=== PATIENT | male | born 1995 ===

== ENCOUNTER 2024-08-21 00:20 | Inpatient (IN) ==
[2024-08-21 02:12] LABS: Hematocrit 27.6 % (38-53); Hemoglobin 9.2 g/dL (13.2-16.3); Mean Corpuscular Hemoglobin 29.4 pg (27-33); Mean Corpuscular Hgb Conc 33.5 g/dL (31-36); Mean Corpuscular Volume 87.5 fL (80-97); Mean Platelet Volume 5.8 fL (7.5-11.2); Platelet Count 587 10^3/uL (150-450); Red Blood Count 3.15 10^6/uL (4.06-5.63); Red Cell Distribution Width 13.1 % (12-17); White Blood Count 21.9 10^3/uL (3.6-10.2)
[2024-08-21 02:55] LABS: ALT 10 U/L (7-52); AST 9 U/L (13-39); Albumin 2.5 g/dL (3.2-5.2); Albumin/Globulin Ratio 0.8 (1-3); Alkaline Phosphatase 64 U/L (35-149); Anion Gap 12 mmol/L (2-16); Blood Urea Nitrogen 8 mg/dL (6-24); C Reactive Protein 223.67 mg/L (<8.01); CO2 Carbon Dioxide 31 mmol/L (22-32); Calcium 7.7 mg/dL (8.6-10.3); Chloride 86 mmol/L (101-111); Creatinine, Serum 0.47 mg/dL (0.67-1.17); Globulin 3.2 g/dL (2-4); Glucose 73 mg/dL (70-100); Potassium 3.3 mmol/L (3.5-5.0); Sodium 129 mmol/L (135-145); Total Bilirubin 0.5 mg/dL (0.2-1.0); Total Protein 5.7 g/dL (6.4-8.9); eGFR CKD-EPI 143.4 (>60)
[2024-08-21 03:28] LABS: ABS Eosinophils 0.1 10^3/uL (0.0-0.5); ABS Lymphocytes 0.7 10^3/uL (1.0-4.8); ABS Monocytes 0.9 10^3/uL (0.0-1.1); ABS Neutrophils 20.1 10^3/uL (1.5-7.6); Eosinophil % 0.5 %; Lymphocyte % 3.4 %
[2024-08-21 03:29] LABS: Magnesium 1.8 mg/dL (1.9-2.7); Phosphorus 3.7 mg/dL (2.5-5.0)
[2024-08-21 03:41] LABS: Urine Appearance Clear; Urine Bilirubin Negative (Negative); Urine Blood Negative (Negative); Urine Glucose Negative (Negative); Urine Ketones 4+ (Negative); Urine Nitrite Negative (Negative); Urine Protein 1+ (>=30 mg/dL) (Negative); Urine Specific Gravity 1.035 (1.002-1.030); Urine Urobilinogen Negative (Negative)
[2024-08-21 03:46] LABS: Urine Bacteria Absent /HPF (Absent); Urine Red Blood Cell Trace(0-2/hpf) /HPF (0-Trace); Urine Sperm Present /HPF (Absent); Urine White Blood Cell 2+(11-20/hpf) /HPF (0-Trace)
[2024-08-21 03:55] LABS: Folate 7.23 ng/mL (5.90-24.80)
[2024-08-21 03:55] LABS: Urine Color Dark-Yellow
[2024-08-21 03:56] LABS: Vitamin B12 1425 pg/mL (180-914)
[2024-08-21] MEDS: Lactated Ringers 1000 ml BAG 1,000 ML IV SCH (04:30)
[2024-08-21] MEDS: KCL 20 MEQ/100 ML IVPREMIX 20 MEQ/100 ML BAG IV SCH (04:30)
[2024-08-21] MEDS ORDERED: fentaNYL 100 mcg/2 ml 50 MCG/ML VIAL IV SLOW PU PRN (05:27)
[2024-08-21] MEDS: Magnesium Sulfate 2 gm BAG 2 GM/50 ML BAG IVPB ONE (05:49)
[2024-08-21] MEDS: methylPREDNISolone SOD SUCC 40 mg/ml 1 ml VIAL IV SCH (05:49)
[2024-08-21 05:54] LABS: Osmolality Serum 264 mOsm/kg (275-295)
[2024-08-21] MEDS: Acetaminophen IV 1 GM/100ML 1,000 MG/100 ML BAG IV SCH (08:08)
[2024-08-21 09:16] LABS: Urine Osmo 636 mOsm/kg (150-1150)
[2024-08-21] MEDS: Lactated Ringers 1000 ml BAG 1,000 ML IV ONE (09:50)
[2024-08-21 11:01] LABS: % Iron Saturation 11 % (15-55); .Transferrin 128 mg/dL (203-362); Iron < 20 ug/dL (50-212); Total Iron Binding Capacity 179 mcg/dL (250-450); Unsaturated Iron Binding 159 ug/dL
[2024-08-21] MEDS ORDERED: Morphine 2 MG/ML SYRINGE IV PRN ×2 (11:24→11:27)
[2024-08-21 11:27] LABS: Erythrocyte Sed Rate 111 mm/Hr (0-14)
[2024-08-21 12:55] LABS: Calcium 7.5 mg/dL (8.6-10.3); Creatinine, Serum 0.36 mg/dL (0.67-1.17); Potassium 3.3 mmol/L (3.5-5.0); eGFR CKD-EPI 155.4 (>60)
[2024-08-21 13:00] LABS: Hematocrit 24.3 % (38-53); Hemoglobin 8.1 g/dL (13.2-16.3); Mean Corpuscular Hemoglobin 28.9 pg (27-33); Mean Corpuscular Hgb Conc 33.3 g/dL (31-36); Mean Corpuscular Volume 86.7 fL (80-97); Mean Platelet Volume 5.9 fL (7.5-11.2); Platelet Count 527 10^3/uL (150-450); Red Blood Count 2.81 10^6/uL (4.06-5.63); Red Cell Distribution Width 13.3 % (12-17); White Blood Count 18.8 10^3/uL (3.6-10.2)
[2024-08-21 15:02] LABS: ABS Lymphocytes 0.2 10^3/uL (1.0-4.8); ABS Monocytes 0.3 10^3/uL (0.0-1.1); ABS Neutrophils 18.2 10^3/uL (1.5-7.6); Eosinophil % 0.1 %; Lymphocyte % 1.3 %
[2024-08-21] MEDS: PEG 3000 GI LAVAGE 1 GALLON PO ONE (16:35)
[2024-08-21] MEDS: Heparin 5000 UNITS/ML 1 mL VIAL SUBCUT ONE (18:22)
[2024-08-21 21:33] LABS: Hematocrit 23.8 % (38-53); Hemoglobin 8.3 g/dL (13.2-16.3)
[2024-08-22 06:20] LABS: ABS Lymphocytes 0.4 10^3/uL (1.0-4.8); ABS Monocytes 0.4 10^3/uL (0.0-1.1); ABS Neutrophils 12.7 10^3/uL (1.5-7.6); Hematocrit 24.1 % (38-53); Hemoglobin 8.3 g/dL (13.2-16.3); Lymphocyte % 2.6 %; Mean Corpuscular Hemoglobin 29.7 pg (27-33); Mean Corpuscular Hgb Conc 34.5 g/dL (31-36); Mean Corpuscular Volume 86.1 fL (80-97); Mean Platelet Volume 6.8 fL (7.5-11.2); Platelet Count 500 10^3/uL (150-450); Red Blood Count 2.79 10^6/uL (4.06-5.63); Red Cell Distribution Width 13.6 % (12-17); White Blood Count 13.5 10^3/uL (3.6-10.2)
[2024-08-22 07:01] LABS: Calcium 7.6 mg/dL (8.6-10.3); Creatinine, Serum 0.36 mg/dL (0.67-1.17); Magnesium 1.9 mg/dL (1.9-2.7); Potassium 2.9 mmol/L (3.5-5.0); eGFR CKD-EPI 155.4 (>60)
[2024-08-22 08:27] LABS: C Reactive Protein 212.84 mg/L (<8.01)
[2024-08-22] MEDS: KCL 20 MEQ/100 ML IVPREMIX 20 MEQ/100 ML BAG IV SCH (09:02)
[2024-08-22] MEDS ORDERED: Magnesium Sulfate 2 gm BAG 2 GM/50 ML BAG IVPB ONE (10:22)
[2024-08-22] MEDS: Magnesium Sulfate 2 gm BAG 2 GM/50 ML BAG IVPB ONE (13:26)
[2024-08-22] MEDS ORDERED: fentaNYL 100 mcg/2 ml 50 MCG/ML VIAL ONE (16:05)
[2024-08-22] MEDS ORDERED: Midazolam 10 mg/10 ml VIAL 1 mg/ml 10 ml VIAL (10 mg) ONE (16:05)
[2024-08-22] MEDS: Acetaminophen IV 1 GM/100ML 1,000 MG/100 ML BAG IV SCH (17:29)
[2024-08-22 21:03] LABS: Adenovirus F40/41 Negative (Negative); Astrovirus Negative (Negative); Cryptosporidium species Negative (Negative); Cyclospora cayetanensis Negative (Negative); Entamoeba histolytica Negative (Negative); Enteroaggregative E.coli(EAEC) Negative (Negative); Enteropathogenic Ecoli(EPEC) Positive (Negative); Enterotoxigenic Ecoli(ETEC) Negative (Negative); Norovirus GI/GII Negative (Negative); Plesiomonas shigelloides Negative (Negative); Salmonella species Negative (Negative); Sapovirus Negative (Negative); Shiga toxin producing E. coli Negative (Negative); Shigella/Enteroinvasive E.coli Negative (Negative); Specimen Source STOOL; Vibrio cholerae Negative (Negative); Yersinia species Negative (Negative)
[2024-08-23 07:07] LABS: ABS Lymphocytes 0.4 10^3/uL (1.0-4.8); ABS Monocytes 0.4 10^3/uL (0.0-1.1); ABS Neutrophils 6.2 10^3/uL (1.5-7.6); Hematocrit 20.5 % (38-53); Hemoglobin 7.2 g/dL (13.2-16.3); Lymphocyte % 5.7 %; Mean Corpuscular Hemoglobin 30.5 pg (27-33); Mean Corpuscular Hgb Conc 35.4 g/dL (31-36); Mean Corpuscular Volume 86.1 fL (80-97); Mean Platelet Volume 6.3 fL (7.5-11.2); Platelet Count 490 10^3/uL (150-450); Red Blood Count 2.38 10^6/uL (4.06-5.63); Red Cell Distribution Width 13.5 % (12-17)
[2024-08-23 07:24] LABS: Albumin 2.2 g/dL (3.2-5.2); Albumin/Globulin Ratio 0.8 (1-3); C Reactive Protein 86.51 mg/L (<8.01); Calcium 7.4 mg/dL (8.6-10.3); Creatinine, Serum 0.31 mg/dL (0.67-1.17); Globulin 2.7 g/dL (2-4); Potassium 3.2 mmol/L (3.5-5.0); Total Bilirubin 0.2 mg/dL (0.2-1.0); Total Protein 4.9 g/dL (6.4-8.9); eGFR CKD-EPI 162.6 (>60)
[2024-08-23 08:24] LABS: Erythrocyte Sed Rate 98 mm/Hr (0-14)
[2024-08-23 10:59] LABS: Hepatitis B Surface Antigen Nonreactive (Nonreactive)
[2024-08-23 11:16] LABS: Hepatitis B Surface Ab Immune (Immune)
[2024-08-23 11:17] LABS: Hepatitis C Antibody Negative (Negative)
[2024-08-23] MEDS: Acetaminophen IV 1 GM/100ML 1,000 MG/100 ML BAG IV SCH (17:57)
[2024-08-23] MEDS: Potassium Chlor 20 meq TAB.ER PO ONE (17:58)
[2024-08-23] MEDS: MESALAMINE 1.2 GM PO SCH (18:19)
[2024-08-23] MEDS: Ferric Gluconate IV 250 MG in NS 0.9% 250 ml 200 ML IVPB SCH (18:23)
[2024-08-23 18:35] LABS: Calprotectin >3000 mcg/g
[2024-08-23] MEDS: Enoxaparin 40 MG/0.4 ML SYR SUBCUT SCH (20:40)
[2024-08-23] MEDS: Lactated Ringers 1000 ml BAG 1,000 ML IV SCH (20:46)
[2024-08-24 06:02] LABS: ABS Lymphocytes 0.5 10^3/uL (1.0-4.8); ABS Monocytes 0.8 10^3/uL (0.0-1.1); Hematocrit 21.3 % (38-53); Hemoglobin 7.6 g/dL (13.2-16.3); Lymphocyte % 5.4 %; Mean Corpuscular Hemoglobin 30.4 pg (27-33); Mean Corpuscular Hgb Conc 35.5 g/dL (31-36); Mean Corpuscular Volume 85.6 fL (80-97); Platelet Count 516 10^3/uL (150-450); Red Blood Count 2.49 10^6/uL (4.06-5.63); Red Cell Distribution Width 13.6 % (12-17); White Blood Count 9.3 10^3/uL (3.6-10.2)
[2024-08-24 06:26] LABS: C Reactive Protein 34.85 mg/L (<8.01); Calcium 7.6 mg/dL (8.6-10.3); Creatinine, Serum 0.3 mg/dL (0.67-1.17); Magnesium 1.9 mg/dL (1.9-2.7); Potassium 3.4 mmol/L (3.5-5.0); eGFR CKD-EPI 164.2 (>60)
[2024-08-24] MEDS: Enoxaparin 40 MG/0.4 ML SYR SUBCUT SCH (12:09)
[2024-08-24] MEDS: PPD test dose 5 TU/0.1 ML TEST (*USE PPD ORDER SET*) INTRADERM ONE (15:36)
[2024-08-24 15:38] LABS: Adenovirus F40/41 Negative (Negative); Astrovirus Negative (Negative); Cryptosporidium species Negative (Negative); Cyclospora cayetanensis Negative (Negative); Entamoeba histolytica Negative (Negative); Enteroaggregative E.coli(EAEC) Negative (Negative); Enteropathogenic Ecoli(EPEC) Positive (Negative); Enterotoxigenic Ecoli(ETEC) Negative (Negative); Norovirus GI/GII Negative (Negative); Plesiomonas shigelloides Negative (Negative); Salmonella species Negative (Negative); Sapovirus Negative (Negative); Shiga toxin producing E. coli Negative (Negative); Shigella/Enteroinvasive E.coli Negative (Negative); Specimen Source STOOL; Vibrio cholerae Negative (Negative); Yersinia species Negative (Negative)
[2024-08-24] MEDS: Lactated Ringers 1000 ml BAG 1,000 ML IV SCH (18:13)
[2024-08-24 21:50] LABS: CMV DNA DETECT/QT, P Undetected IU/mL (Undetected)
[2024-08-25 06:19] LABS: ABS Lymphocytes 0.6 10^3/uL (1.0-4.8); ABS Monocytes 0.5 10^3/uL (0.0-1.1); ABS Neutrophils 13.3 10^3/uL (1.5-7.6); Hematocrit 26.3 % (38-53); Hemoglobin 8.9 g/dL (13.2-16.3); Lymphocyte % 4.5 %; Mean Corpuscular Hemoglobin 29.3 pg (27-33); Mean Corpuscular Volume 86.3 fL (80-97); Mean Platelet Volume 6.2 fL (7.5-11.2); Platelet Count 584 10^3/uL (150-450); Red Blood Count 3.05 10^6/uL (4.06-5.63); Red Cell Distribution Width 13.8 % (12-17); White Blood Count 14.4 10^3/uL (3.6-10.2)
[2024-08-25 06:29] LABS: C Reactive Protein 21.37 mg/L (<8.01); Calcium 7.8 mg/dL (8.6-10.3); Creatinine, Serum 0.34 mg/dL (0.67-1.17); Magnesium 1.9 mg/dL (1.9-2.7); Potassium 3.4 mmol/L (3.5-5.0); eGFR CKD-EPI 158.1 (>60)
[2024-08-26 06:19] LABS: Hematocrit 27.3 % (38-53); Hemoglobin 9.4 g/dL (13.2-16.3); Mean Corpuscular Hemoglobin 29.9 pg (27-33); Mean Corpuscular Hgb Conc 34.5 g/dL (31-36); Mean Corpuscular Volume 86.8 fL (80-97); Mean Platelet Volume 6.1 fL (7.5-11.2); Platelet Count 637 10^3/uL (150-450); Red Blood Count 3.14 10^6/uL (4.06-5.63); Red Cell Distribution Width 13.6 % (12-17)
[2024-08-26 06:33] LABS: C Reactive Protein 15.42 mg/L (<8.01); Calcium 8.1 mg/dL (8.6-10.3); Creatinine, Serum 0.42 mg/dL (0.67-1.17); Potassium 4.1 mmol/L (3.5-5.0); eGFR CKD-EPI 148.3 (>60)
[2024-08-26] MEDS: PPD Reading NOTE 1 EA MISC ONE (15:26)
[2024-08-26] MEDS ORDERED: inFLIXimab-DYYB (Inflectra) 100 MG/10 ML VIAL IVPB ONE (16:00)
[2024-08-26] MEDS: Hydrocortisone INJ 100 MG/2ML 2 ML VIAL IV ONE (16:08)
[2024-08-26] MEDS: INFLIXIMAB DYYB IVPB ONE (16:37)
[2024-08-26] MEDS: NS 0.9% IVPB ONE (16:37)
[2024-08-27 06:29] LABS: Hematocrit 24.1 % (38-53); Hemoglobin 8.4 g/dL (13.2-16.3); Mean Corpuscular Hemoglobin 30.3 pg (27-33); Mean Corpuscular Hgb Conc 34.8 g/dL (31-36); Mean Corpuscular Volume 87.2 fL (80-97); Mean Platelet Volume 6.2 fL (7.5-11.2); Platelet Count 571 10^3/uL (150-450); Red Blood Count 2.76 10^6/uL (4.06-5.63); Red Cell Distribution Width 13.7 % (12-17); White Blood Count 9.5 10^3/uL (3.6-10.2)
[2024-08-27 06:48] LABS: Calcium 7.7 mg/dL (8.6-10.3); Creatinine, Serum 0.33 mg/dL (0.67-1.17); Potassium 3.6 mmol/L (3.5-5.0); eGFR CKD-EPI 159.5 (>60)
[2024-08-27 06:51] LABS: ABS Lymphocytes 1.8 10^3/uL (1.0-4.8); ABS Monocytes 0.6 10^3/uL (0.0-1.1); ABS Neutrophils 7.1 10^3/uL (1.5-7.6); Eosinophil % 0.2 %; Lymphocyte % 18.6 %
[2024-08-27 13:06] LABS: TB1 Ag minus Nil Result 0.01 IU/mL
[2024-08-27 13:09] LABS: QuantiferonTb Gold Plus Result Indeterminate (Negative)
[2024-08-27 14:29] LABS: C Reactive Protein 7.9 mg/L (<8.01)
[2024-08-27 19:11] VITALS: BP 104/73
== END 2024-08-27 16:53 | disposition home or self-care (01) | DRG 245 ==
LOC: ED 00:20 → EDHOLD 00:20 → SUATTDRO 03:14 → EDHOLD 07:28 → MEDTELE 13:41 → SUATTDRO 08-23 17:02
PROVIDERS: ADMIT Internal Medicine; ATTEND Internal Medicine